=== PATIENT | female | born 1980 | race Asian ===

== ENCOUNTER 2019-01-09 18:46 | Outpatient (CLI) | payer MEDICAID ==
--- NOTE | 2019-01-10 09:00 | Ultrasound Report ---
Reason: IRREGULAR MENSTRUATION Procedure Date: 01/09/2019 Accession Number: [id number] / [id number] Procedure: US - Pelvic w/Transvaginal CPT Code: FULL RESULT: EXAM: PELVIC ULTRASOUND EXAM DATE: 01/09/2019 07:10 PM. CLINICAL HISTORY: IRREGULAR MENSTRUATION. COMPARISON: None. TECHNIQUE: Realtime transabdominal pelvic scan performed to identify the uterus and adnexa and as an overview of other pelvic structures, followed by transvaginal scan to provide greater detail of the uterus and adnexa, with static image documentation. FINDINGS: Uterus: 7.9 x 3.8 x 5.5 cm, volume 88 cc. Anteverted position. Normal overall size and echotexture. Masses: None. Endometrium: 7 mm. Intrauterine device in appropriate position. No suspicious mass. Cervix: Unremarkable. Right Ovary: 3.5 x 1.8 x 2.3 cm, volume 7.8 cc. Normal echotexture and blood flow. Left Ovary: 3.6 x 2.0 x 1.5 cm, volume 5.6 cc. Normal echotexture and blood flow. Free Fluid: None. Other: None. IMPRESSION: 1. Appropriately positioned IUD. 2. Normal pelvic ultrasound. RADIA
== END 2019-01-09 18:47 | disposition home or self-care (01) ==
LOC: DI 18:46
PROVIDERS: ATTEND Nurse Practitioner Obstetrics & Gynecology
DX: N92.6 Irregular menstruation, unspecified (principal); Z97.5 Presence of (intrauterine) contraceptive device
CPT/HCPCS: 76830; 76856

== ENCOUNTER 2020-03-23 12:57 | Outpatient (CLI) | payer MEDICAID ==
--- NOTE | 2020-03-23 18:46 | Ultrasound Report ---
PROCEDURE: Head or Neck Soft Tissue INDICATIONS: MULTIPLE THYROID NODULES TECHNIQUE: Real time scanning was performed of the neck region of interest, with image documentation . COMPARISON: Correlation is made with outside report from [place] dated 04/14/2018. FINDINGS: The right thyroid lobe measures 6.2 x 1.7 x 1.9 cm. The left thyroid lobe measures 5.5 x 1.3 x 1.6 cm. The thyroid isthmus measures 5 mm 3 thyroid nodules are seen, which measure as follows: Right mid isthmus 0.5 x 0.4 x 0.4 cm (prior 0.4 x 0.5 x 0.4 cm) Solid Hypoechoic Wider than tall Smooth Punctate calcifications Points: 7 TI-RADS: 5 Right mid isthmus 0.7 x 0.1 x 0.2 cm (prior 0.3 x 0.3 cm) Solid Hyperechoic Wider than tall Smooth Macrocalcifications Points: 4 TI-RADS: 4 Left mid thyroid medially 0.3 x 0.2 x 0.3 cm (prior 0.4 x 0.6 x 0.4 cm) Solid Hyperechoic Wider than tall Smooth margins Macrocalcifications Points: 4 TI-RADS: 4 Within the right superolateral neck, there is a prominent lymph node seen that measures 2 x 4 x 6 mm. A nonvascular cystic appearing focus is seen lateral to the right thyroid, measuring 2.2 x 0.6 x 1.3 cm. IMPRESSION: 3 thyroid nodules are seen. These nodules are not significantly changed compared to the outside repor t. By published criteria, annual follow-up is recommended for the largest of the nodules, to demonstr ate stability for a total of 5 years. Elsewhere within the neck, there is a 1.3 cm cystic appearing focus as well as a prominent lymph node . If clinically appropriate, a dedicated neck CT with IV contrast could be considered for further monserrat luation. Reviewed by: Caio Mccoy MD on 03/23/2020 5:45 PM ADELSO Approved by: Caio Mccoy MD on 03/23/2020 5:45 PM ADELSO Station ID: [id number]
== END 2020-03-23 12:58 | disposition home or self-care (01) ==
LOC: DI 12:57
PROVIDERS: ATTEND Family Medicine
DX: E04.2 Nontoxic multinodular goiter (principal); R93.7 Abnormal findings on diagnostic imaging of other parts of musculoskeletal system
CPT/HCPCS: 76536

== ENCOUNTER 2020-03-28 14:05 | Outpatient (CLI) | payer MEDICAID ==
[2020-03-28 20:58] LABS: THYROID STIMULATING HORMONE 1.74 uIU/mL (0.34-5.60)
[2020-03-28 21:00] LABS: FREE T3 3.02 pg/mL (2.5-3.9); FREE T4 (FREE THYROXINE) 0.95 ng/dL (0.58-1.64)
== END 2020-03-28 14:06 | disposition home or self-care (01) ==
LOC: LAB.S 14:05
PROVIDERS: ATTEND Family Medicine
DX: E04.2 Nontoxic multinodular goiter (principal)
CPT/HCPCS: 36415; 84439; 84443; 84481

== ENCOUNTER 2020-05-30 11:49 | Outpatient (CLI) | payer MEDICAID ==
[2020-05-30] MEDS ORDERED: IOVERSOL 320 100 ML VIAL IVP ONE ×2 (12:04→19:30)
--- NOTE | 2020-05-30 17:04 | CT Report ---
PROCEDURE: SOFT TISSUE NECK W INDICATIONS: MULTIPLE THYROID NODULES CONTRAST: IV CONTRAST: Optiray 320 ml: 100 PO CONTRAST: *NO PO CONTRAST TECHNIQUE: After the administration of intravenous contrast, 3.0 mm axial sections acquired from the sella to th e aortic arch. Additional oblique axial 3.0 mm sections acquired through the pharynx. 3 mm thick co siobhan reformats were generated. For radiation dose reduction, the following was used: automated exp osure control, adjustment of mA and/or kV according to patient size. COMPARISON: None. FINDINGS: Image quality: Excellent. Lymph nodes: No enlarged lymph nodes seen throughout the neck. There is mild shotty adenopathy compr ised of an increased number of small nodes seen deep to the sternocleidomastoid muscle, symmetrically , and also small nodes present slightly greater on the left than the right at the supraclavicular fos sa. Vessels: Visualized vasculature appears patent. Neck spaces: The oropharynx, nasopharynx, and pharynx demonstrate no mucosal lesions. The vocal cor ds, false vocal cords, pyriform sinuses, epiglottis, vallecula, and tongue base all appear normal. E xtramucosal spaces appear unremarkable. Glands: The parotid and submandibular glands appear normal. The thyroid is normal in size. Miscellaneous: Visualized brain and orbits appear normal. Lung apices appear clear. Superficial so ft tissues appear normal. Bones: No suspicious bony lesions. Visualized sinuses and mastoids appear unremarkable. IMPRESSION: No enlarged nodes are found. Mild shotty adenopathy, a nonspecific finding that generally is consider ed reactive. No mucosal lesion is seen. No abnormal fluid collection is found. There is no sign of pa rapharyngeal abscess or inflammation by this examination. Reviewed by: Morgan Swain MD on 05/30/2020 5:03 PM PDT Approved by: Morgan Swain MD on 05/30/2020 5:03 PM PDT Station ID: [id number]
== END 2020-05-30 11:50 | disposition home or self-care (01) ==
LOC: DI 11:49
PROVIDERS: ATTEND Registered Nurse
DX: E04.2 Nontoxic multinodular goiter (principal)
CPT/HCPCS: 70491; Q9967

== ENCOUNTER 2020-06-26 09:10 | Outpatient (CLI) | payer MEDICAID ==
[2020-06-26 15:43] LABS: BASOPHILS % (AUTO) 0.6 %; EOSINOPHILS # (AUTO) 0.2 10^3/uL (0.0-0.7); LYMPHOCYTES # (AUTO) 1.4 10^3/uL (1.5-3.5); LYMPHOCYTES % (AUTO) 28.6 %; MEAN CORPUSCULAR HEMOGLOBIN 29.2 pg (27.0-31.0); MEAN CORPUSCULAR HGB CONC 31.1 g/dL (32.0-36.0); MEAN CORPUSCULAR VOLUME 93.8 fL (81.0-99.0); MEAN PLATELET VOLUME 10.5 fL (7.9-10.8); MONOCYTES # (AUTO) 0.4 10^3/uL (0.0-1.0); MONOCYTES % (AUTO) 7.2 %; NEUTROPHILS % (AUTO) 60.2 %; PLT - PLATELET COUNT 214 10^3/uL (130-450); RED CELL DISTRIBUTION WIDTH 13.2 % (12.0-15.0)
[2020-06-26 16:09] LABS: ALBUMIN 4.3 g/dL (3.2-5.5); ALBUMIN/GLOBULIN RATIO 1.5 (1.0-2.2); ALKALINE PHOSPHATASE 63 IU/L (42-121); ALT ALANINE AMINOTRANSFERASE 23 IU/L (10-60); AST ASPARTATE AMINOTRANSFERASE 24 IU/L (10-42); BILIRUBIN,TOTAL 1.2 mg/dL (0.2-1.0); BUN - BLOOD UREA NITROGEN 18 mg/dL (6-20); CALCIUM 8.8 mg/dL (8.5-10.3); CARBON DIOXIDE - CO2 24 mmol/L (21-32); CHLORIDE 105 mmol/L (101-111); CHOL/HDL RATIO 2.1 (<4.4); CHOLESTEROL 156 mg/dL; CREATININE 0.8 mg/dL (0.4-1.0); GLUCOSE 92 mg/dL (70-100); HDL CHOLESTEROL 73 mg/dL; LDL CHOLESTEROL,CALCULATED 73 mg/dL; SODIUM 138 mmol/L (135-145); TOTAL PROTEIN 7.2 g/dL (6.7-8.2); VLDL CHOLESTEROL 10 mg/dL
== END 2020-06-26 09:11 | disposition home or self-care (01) ==
LOC: LAB.S 09:10
PROVIDERS: ATTEND Registered Nurse
DX: J45.998 Other asthma (principal); E04.2 Nontoxic multinodular goiter; N92.6 Irregular menstruation, unspecified
CPT/HCPCS: 36415; 80053; 80061; 83721; 84443; 85025

== ENCOUNTER 2021-02-21 12:41 | Outpatient (CLI) | payer MEDICAID ==
[2021-02-21 15:25] LABS: T4 (THYROXINE) 7.55 ug/dL (6.09-12.23)
[2021-02-21 15:28] LABS: THYROID STIMULATING HORMONE 1.89 uIU/mL (0.34-5.60)
== END 2021-02-21 12:42 | disposition home or self-care (01) ==
LOC: LAB.S 12:41
PROVIDERS: ATTEND Registered Nurse
DX: E04.2 Nontoxic multinodular goiter (principal)
CPT/HCPCS: 36415; 84436; 84443; 84480

== ENCOUNTER 2021-07-15 16:55 | Outpatient (CLI) | payer MEDICAID ==
--- NOTE | 2021-07-15 22:25 | XRAY Report ---
PROCEDURE: Lumbar Spine 2 View INDICATIONS: BACK PAIN TECHNIQUE: 3 views of the lumbar spine were acquired. COMPARISON: None. FINDINGS: Bones: 5 [id number] vertebrae are present. There is normal bony alignment. Moderate disc heig ht loss at L5-S1. No vertebral body compression fractures. No suspicious bony lesions. Soft tissues: Overlying bowel gas pattern is normal. No suspicious soft tissue calcifications. IUD is in expected location. IMPRESSION: Degenerative disc height loss L5-S1. Otherwise normal lumbar spine. Reviewed by: Shanna Lamar MD on 07/15/2021 10:24 PM PST Approved by: Shanna Lamar MD on 07/15/2021 10:24 PM PST Station ID: [id number]
== END 2021-07-15 16:56 | disposition home or self-care (01) ==
LOC: DI.S 16:55
PROVIDERS: ATTEND Registered Nurse
DX: M51.17 Intervertebral disc disorders with radiculopathy, lumbosacral region (principal)

== ENCOUNTER 2021-08-22 08:32 | Outpatient (CLI) | payer MEDICAID ==
--- NOTE | 2021-08-22 14:47 | Ultrasound Report ---
PROCEDURE: Head or Neck Soft Tissue INDICATIONS: MULTIPLE THYROID NODULES TECHNIQUE: Real-time scanning was performed of the thyroid gland, with image documentation. COMPARISON: Ultrasound neck 03/23/2020, CT neck 05/30/2020. FINDINGS: Right: Thyroid lobe measures 5.4 x 1.7 x 2.1 cm, and appears overall homogeneous in echotexture. A small thin-walled anechoic cyst is noted in the right lobe measuring up to 0.2 cm. Left: Thyroid lobe measures 4.9 x 1.4 x 2.1 cm, and appears overall homogenous in echotexture. Isthmus: 0.5 cm thick. Nodule number: One Location: Right isthmus Size: 0.5 x 0.5 x 0.5 cm, similar to 0.5 x 0.4 x 0.4 cm previously Composition: Solid Echogenicity: Hypoechoic Shape:: Slightly taller than wide. Margins: Smooth Echogenic foci: There are internal punctate echogenic foci compatible with microcalcifications. Total points: 7 ACR TI-RADS category: 5 Nodule number: Two Location: Medial mid left thyroid lobe. Size: 0.3 x 0.3 x 0.4 cm. Composition: Solid Echogenicity: Hyperechoic Shape: Wider than tall. Margins: Smooth Echogenic foci: Macrocalcifications. Total points: 4 ACR TI-RADS category: 4 IMPRESSION: 1. Stable small nodule in the right thyroid isthmus. Recommend continued follow up in 12 months. ACR TI-RADS definitions and recommendations: TI-RADS 1 (benign): 0 points. FNA not needed. TI-RADS 2 (not suspicious): 2 points. FNA not needed. TI-RADS 3 (mildly suspicious): 3 points. "FNA if 2.5 cm or larger, follow up if 1.5 cm or larger (at 1, 3, and 5 years). TI-RADS 4 (moderately suspicious): 4-6 points. "FNA if 1.5 cm or larger, follow up if 1 cm or larger (at 1, 2, 3, and 5 years). TI-RADS 5 (highly suspicious): 7 points or more. "FNA if 1 cm or larger, follow up if 0.5 cm or larger (every year for 5 years). Reviewed by: Lucio Gonzalez MD on 08/22/2021 2:46 PM PST Approved by: Lucio Gonzalez MD on 08/22/2021 2:46 PM PST Station ID: [id number]
== END 2021-08-22 08:33 | disposition home or self-care (01) ==
LOC: DI 08:32
PROVIDERS: ATTEND Registered Nurse
DX: E04.2 Nontoxic multinodular goiter (principal)

== ENCOUNTER 2022-06-22 08:00 | Outpatient (CLI) | payer MEDICAID ==
[2022-06-24 00:14] LABS: BACTERIAL VAGINOSIS DNA NEGATIVE (NEGATIVE); CANDIDA GLABRATA DNA NEGATIVE (NEGATIVE); CANDIDA GROUP DNA NEGATIVE (NEGATIVE); CANDIDA KRUSEI DNA NEGATIVE (NEGATIVE); TRICHOMONAS VAGINALIS DNA NEGATIVE (NEGATIVE)
== END 2022-06-22 23:59 | disposition home or self-care (01) ==
LOC: LAB.R 08:00
PROVIDERS: ATTEND Nurse Practitioner
DX: N89.8 Other specified noninflammatory disorders of vagina (principal)
CPT/HCPCS: 81514

== ENCOUNTER 2022-08-12 09:59 | Outpatient (CLI) | payer MEDICAID ==
--- NOTE | 2022-08-13 17:39 | Ultrasound Report ---
PROCEDURE: Head or Neck Soft Tissue INDICATIONS: THYROID NODULES TECHNIQUE: Real-time scanning was performed of the thyroid gland, with image documentation. COMPARISON: Ultrasound 08/22/2021 FINDINGS: Right: Thyroid lobe measures 5.6 x 1.7 x 2.0 cm, and is homogeneous in echotexture. Left: Thyroid lobe measures 4.9 x 1.3 x 1.9 cm, and is homogenous in echotexture. Isthmus: 5 mm thick. Nodule number: One Location: Right isthmus Size: 0.5 x 0.4 x 0.4 cm compared to 0.5 x 0.5 x 0.5 cm. Composition: Solid Echogenicity: Hypoechoic Shape: wider than tall. Margins: Smooth Echogenic foci: Punctate Total points: 7 ACR TI-RADS category: 5 Nodule number: Two Location: Right superior Size: 0.4 x 0.3 x 0.7 cm compared to 0.3 x 0.3 x 0.4 cm. Composition: Solid Echogenicity: Hypoechoic Shape: wider than tall. Margins: Smooth Echogenic foci: Calcification Total points: 4 ACR TI-RADS category: 4 IMPRESSION: Both lesions are stable. Recommend continued interval follow-up as below. ACR TI-RADS definitions and recommendations: TI-RADS 1 (benign): 0 points. FNA not needed. TI-RADS 2 (not suspicious): 2 points. FNA not needed. TI-RADS 3 (mildly suspicious): 3 points. "FNA if 2.5 cm or larger, follow up if 1.5 cm or larger (at 1, 3, and 5 years). TI-RADS 4 (moderately suspicious): 4-6 points. "FNA if 1.5 cm or larger, follow up if 1 cm or larger (at 1, 2, 3, and 5 years). TI-RADS 5 (highly suspicious): 7 points or more. "FNA if 1 cm or larger, follow up if 0.5 cm or larger (every year for 5 years). Reviewed by: Flaquita Ellison MD on 08/13/2022 5:38 PM PST Approved by: Flaquita Ellison MD on 08/13/2022 5:38 PM PST Station ID: [id number]
== END 2022-08-12 10:00 | disposition home or self-care (01) ==
LOC: DI 09:59
PROVIDERS: ATTEND Registered Nurse
DX: E04.2 Nontoxic multinodular goiter (principal)

== ENCOUNTER 2022-08-18 09:40 | Outpatient (CLI) | payer MEDICAID ==
--- NOTE | 2022-08-19 11:56 | Mammography Report ---
BILATERAL FIRST EVER DIGITAL SCREENING MAMMOGRAM 3D/2D WITH EXAGGERATED CC: 08/18/2022 CLINICAL: Routine screening. Baseline exam. No prior exams were available for comparison. Both breasts are extremely dense, which lowers the sensitivity of mammography (category d />75% gland ular tissue). There is a possible irregular high density focal asymmetry in the right breast at 2 o'clock middle de pth. No other significant masses, calcifications, or other findings are seen in either breast. IMPRESSION: INCOMPLETE: NEEDS ADDITIONAL IMAGING EVALUATION The possible irregular high density focal asymmetry in the right breast is indeterminate. Additional views with possible ultrasound are recommended. Based on Tyrer-Cuzick model (a risk assessment model), the patient's lifetime risk is 23.1% and her 1 0 year risk is 4.2%. If a patient has an elevated risk, a more comprehensive evaluation should be con sidered and/or a referral to a genetic counselor. The [place] [employer], [place] [employer], and NCCN Guidelines advise the consideration of Breast MRI as an adjunct to screening mammog stephanie in patients whose "Lifetime risk to develop breast cancer" is 20% or higher. This exam was interpreted at Station ID: [id number]. NOTE: For mammograms, a report in lay terms will be sent to the patient. Approximately 15% of breast malignancies will not be visualized mammographically. In the management of a palpable breast mass, a negative mammogram must not discourage biopsy of a clinically suspicious lesion. Electronically Signed By: Shanna langston/mark:08/18/2022 13:12:15 ACR BI-RADS Category 0: Incomplete 3340F PARENCHYMAL PATTERN: (VD) - The breast(s) demonstrate(s) extremely dense parenchyma, limiting the sen sitivity of mammography. BI-RADS CATEGORY: (0) - 0 Mammo and [place] [id number] Immediate follow-up LATERALITY: (B)
== END 2022-08-18 09:41 | disposition home or self-care (01) ==
LOC: DI.S 09:40
PROVIDERS: ATTEND Nurse Practitioner
DX: Z12.31 Encounter for screening mammogram for malignant neoplasm of breast (principal)

== ENCOUNTER 2022-09-02 09:48 | Outpatient (CLI) | payer MEDICAID ==
--- NOTE | 2022-09-03 13:08 | Mammography Report ---
UNILATERAL RIGHT DIGITAL DIAGNOSTIC MAMMOGRAM 3D/2D: 09/02/2022 CLINICAL: Patient returns today to evaluate a focal asymmetry in the right breast. Comparison is made to exam dated: 08/18/2022 mammogram - [facility]. The right breast is extremely dense, which lowers the sensitivity of mammography (category d />75% gl andular tissue). There is a possible focal asymmetry in the right breast at 2 o'clock middle depth. This is not seen in additional views. No other significant masses or calcifications are seen in the breast. IMPRESSION: INCOMPLETE: NEEDS ADDITIONAL IMAGING EVALUATION The possible focal asymmetry in the right breast is indeterminate. A second look ultrasound is recommended and will immediately follow. Based on Tyrer-Cuzick model (a risk assessment model), the patient's lifetime risk is 33.1% and her 1 0 year risk is 6.4%. If a patient has an elevated risk, a more comprehensive evaluation should be con sidered and/or a referral to a genetic counselor. The [place] [employer], [employer] [employer], and NCCN Guidelines advise the consideration of Breast MRI as an adjunct to screening mammog stephanie in patients whose "Lifetime risk to develop breast cancer" is 20% or higher. This exam was interpreted at Station ID: [id number]. NOTE: For mammograms, a report in lay terms will be sent to the patient. Approximately 15% of breast malignancies will not be visualized mammographically. In the management of a palpable breast mass, a negative mammogram must not discourage biopsy of a clinically suspicious lesion. Electronically Signed By: Solo Roman M.D. slc/:09/02/2022 10:37:51 ACR BI-RADS Category 0: Incomplete 3340F PARENCHYMAL PATTERN: (VD) - The breast(s) demonstrate(s) extremely dense parenchyma, limiting the sen sitivity of mammography. BI-RADS CATEGORY: (0) - 0 Ultrasound [id number] Immediate follow-up LATERALITY: (B)
--- NOTE | 2022-09-03 13:08 | Ultrasound Report ---
LIMITED ULTRASOUND OF RIGHT BREAST: 09/02/2022 CLINICAL: Patient returns today to evaluate focal asymmetries in the right breast. Comparison is made to exams dated: 09/02/2022 mammogram and 08/18/2022 mammogram - [facility]. Real-time ultrasound of the right breast 2-3 o'clock region was performed. Hanley scale images of the real-time examination were reviewed. No significant abnormalities were seen sonographically in the right breast in the region of the possi ble focal asymmetry. IMPRESSION: NEGATIVE There is no sonographic evidence of malignancy. A 1 year screening mammogram is recommended. Exam findings were conveyed to the patient. This exam was interpreted at Station ID: [id number]. Electronically Signed By: Solo Roman M.D. slc/:09/02/2022 10:56:54 Ultrasound BI-RADS: 1 Negative BI-RADS CATEGORY: (1) - 1 RECOMMENDATION: (ANNUAL) - Recommend routine annual screening mammography. [id number] 1 year screening LATERALITY: (B)
== END 2022-09-02 09:49 | disposition home or self-care (01) ==
LOC: DI 09:48
PROVIDERS: ATTEND Nurse Practitioner
DX: R92.8 Other abnormal and inconclusive findings on diagnostic imaging of breast (principal)

== ENCOUNTER 2023-08-09 08:35 | Outpatient (CLI) | payer MEDICAID ==
--- NOTE | 2023-08-09 15:58 | Ultrasound Report ---
PROCEDURE: Soft Tissue Head or Neck INDICATIONS: THYROID NODULES TECHNIQUE: Real-time scanning was performed of the thyroid gland, with image documentation. COMPARISON: 08/12/2022 and 08/22/2021 FINDINGS: Right: Thyroid lobe measures 5.6 x 1.9 x 1.9 cm, and is homogeneous in echotexture. Left: Thyroid lobe measures 5.1 x 1.5 x 1.6 cm, and is homogenous in echotexture. Isthmus: 0.4 cm thick. Nodule number: One Location: Right isthmus Size: 0.5 x 0.4 x 0.4, unchanged from prior study. Composition: Solid. Echogenicity: Hypoechoic (2 points). Shape: wider than tall (0 points). Margins: Smooth (0 points). Echogenic foci: Punctate echogenic foci (3 points). Total points: 7 ACR TI-RADS category: TI-RADS 5: Highly suspicious. Nodule number: Two Location: Upper to midpole left thyroid lobe Size: 0.4 x 0.3 x 0.3 cm, unchanged from prior study. Composition: Solid (2 points). Echogenicity: Hyperechoic (1 point). Shape: wider than tall (0 points). Margins: Smooth (0 points). Echogenic foci: Macrocalcification (1 point). Total points: 4 ACR TI-RADS category: TI-RADS 4: Moderately suspicious. IMPRESSION: Stable subcentimeter thyroid nodules as described above essentially unchanged from prior study. Continued sonographic follow-up is suggested based on following recommendations. ACR TI-RADS definitions and recommendations: TI-RADS 1 (benign): 0 points. FNA not needed. TI-RADS 2 (not suspicious): 2 points. FNA not needed. TI-RADS 3 (mildly suspicious): 3 points. "FNA if 2.5 cm or larger, follow up if 1.5 cm or larger (at 1, 3, and 5 years). TI-RADS 4 (moderately suspicious): 4-6 points. "FNA if 1.5 cm or larger, follow up if 1 cm or larger (at 1, 2, 3, and 5 years). TI-RADS 5 (highly suspicious): 7 points or more. "FNA if 1 cm or larger, follow up if 0.5 cm or larger (every year for 5 years). Reviewed by: Tone Fajardo MD on 08/09/2023 3:57 PM PST Approved by: Tone Fajardo MD on 08/09/2023 3:57 PM PST Station ID: [id number]
== END 2023-08-09 08:36 | disposition home or self-care (01) ==
LOC: DI 08:35
PROVIDERS: ATTEND Registered Nurse
DX: E04.2 Nontoxic multinodular goiter (principal)